=== PATIENT | male | born 1940 ===

== ENCOUNTER 2016-06-01 01:51 | Emergency (ER) | payer OTHER, MEDICARE ==
[~2016-06-01] VITALS: Ht 167.6 cm; Wt 73.0 kg
--- NOTE | 2016-06-01 02:44 | ED NECK/BACK PAIN COMPLAINT ---
History of Present Illness General Chief Complaint: Low Back Pain/Injury Stated Complaint: LEFT SIDE BACK PAIM Source: patient Exam Limitations: no limitations Vital Signs & Intake/Output Vital Signs & Intake/Output Vital Signs Date Time Temp Pulse Resp B/P Pulse O2 O2 Flow FiO2 Ox Delivery Rate 06/02 215 98.4 93 18 182/102 96 Room Air Allergies Coded Allergies: No Known Allergies (06/01/16) Triage Nurses Notes Reviewed? yes Onset: Gradual Duration: day(s):, waxing and waning Timing: recent history Quality/Severity: mild Location: LEFT FLANK PAIN Past History Travel History Traveled to [place] past 21 day No Review of Systems Review of Systems Constitutional: Reports: no symptoms. Eyes: Reports: no symptoms. Ears, Nose, Throat, Mouth: Reports: no symptoms. Respiratory: Reports: no symptoms. Cardiovascular: Reports: no symptoms. Gastrointestinal/Abdominal: Reports: no symptoms. Musculoskeletal: Reports: no symptoms. Skin: Reports: no symptoms. Neurological/Psychological: Reports: no symptoms. All Other Systems: Reviewed and Negative Physical Exam Physical Exam General Appearance: well developed/nourished, mild distress Head: atraumatic Eyes: Bilateral: PERRL, EOMI. Ears, Nose, Throat, Mouth: hearing grossly normal Respiratory: normal breath sounds Cardiovascular: regular rate/rhythm Gastrointestinal: soft, non-tender Back: normal inspection Extremities: normal range of motion Neurologic/Psych: awake, alert, oriented x 3, normal mood/affect Skin: intact, normal color, warm/dry Progress Plan of Care: Orders Procedure Date/time Status LIPASE 06/01 257 Active COMPREHENSIVE METABOLIC PANEL 06/01 257 Active CBC WITHOUT DIFFERENTIAL 06/[address] ABD & PELVIS W/O IV CONTRAS 06/01 257 Active URINALYSIS 06/01 248 Active Departure Departure Condition: Stable Referrals: PATIENCE BLAKELY,SE [place] (PCP/Family) Departure Forms: Customer Survey General Discharge Information
--- NOTE | 2016-06-01 03:02 | ED GI/GU/ABDOMINAL COMPLAINT ---
History of Present Illness General Chief Complaint: Low Back Pain/Injury Stated Complaint: LEFT SIDE BACK PAIM Source: patient, family Exam Limitations: no limitations Vital Signs & Intake/Output Vital Signs & Intake/Output Vital Signs Date Time Temp Pulse Resp B/P Pulse O2 O2 Flow FiO2 Ox Delivery Rate 06/01 0429 162/96 06/01 0407 96.0 80 18 180/101 96 Room Air 06/01 0317 Room Air 06/01 0216 98.4 93 18 182/102 96 Room Air Allergies Coded Allergies: No Known Allergies (06/01/16) Reconcile Medications Albuterol Sulfate (Proair Hfa) 90 MCG HFA.AER.AD 2 PUF INH Q4-6 PRN PRN ASTHMA (Reported) Budesonide/Formoterol Fumarate (Symbicort 160-4.5 Mcg Inhaler) 160 MCG-4.5 MCG/ ACTUATION HFA.AER.AD 2 PUF INH BID ASTHMA (Reported) Ibuprofen 600 MG TABLET 1 TAB PO TID PRN pain with food Tamsulosin HCl (Flomax) 0.4 MG CAP.ER.24H 1 CAP PO DAILY kidney stone Tramadol HCl (Ultram) 50 MG TABLET 1-2 TAB PO TID PRN pain thirty...[id number] Triage Note: 76YO MALE TO RM 7 FROM TRIAGE W/CO L FLANK AREA PAIN INTERMITTENT SINCE . DENIES ANY N,V,D. STATES "HE HAS HX DIVERTIC DISEASE AND HAD CLEAN COLONOSCOPY LAST MONTH" Triage Nurses Notes Reviewed? yes Onset: Gradual Duration: day(s):, waxing and waning Timing: recent history Quality/Severity: cramping, moderate Location: left flank Radiation: LLQ Activities at Onset: none Prior Abdominal Problems: none Modifying Factors: Worsens With: movement. Associated Symptoms: abdominal pain, BACK PAIN HPI: 76-year-old gentleman in prior good health, history of cough variant asthma, presents with left back pain radiating to his left lower quadrant and dark urine. He states the symptoms began early yesterday morning. The symptoms waxed and waned over several hours. Then, tonight he felt the pain got worse. He states he has no nausea vomiting fever chills, diarrhea. He did note increased gas and bloating. He is otherwise well and has no other concerns. Past History Travel History Traveled to [place] past 21 day No Medical History Any Pertinent Medical History? see below for history Respiratory: asthma Surgical History Surgical History: none Family History Hx Contributory? No Review of Systems Review of Systems Constitutional: Reports: no symptoms. EENTM: Reports: no symptoms. Respiratory: Reports: no symptoms. Cardiovascular: Reports: no symptoms. GI: Reports: no symptoms. Genitourinary: Reports: no symptoms. Musculoskeletal: Reports: no symptoms. Skin: Reports: no symptoms. Neurological/Psychological: Reports: no symptoms. Hematologic/Endocrine: Reports: no symptoms. Immunologic/Allergic: Reports: no symptoms. All Other Systems: Reviewed and Negative Physical Exam Physical Exam General Appearance: well developed/nourished, mild distress Head: atraumatic, normal appearance Eyes: Bilateral: normal appearance. Ears, Nose, Throat, Mouth: hearing grossly normal, moist mucous membrane Neck: normal inspection, supple, full range of motion, normal alignment Respiratory: normal breath sounds, chest non-tender, no respiratory distress, quiet respiration, lungs clear Cardiovascular: regular rate/rhythm Gastrointestinal: normal bowel sounds, soft, non-tender, no organomegaly Back: normal inspection, normal range of motion Extremities: normal range of motion Neurologic/Psych: no motor/sensory deficits, awake, alert, oriented x 3 Skin: intact, normal color, warm/dry Core Measures ACS in differential dx? No Severe Sepsis Present: No Septic Shock Present: No Progress Differential Diagnosis: ureterolithiasis, UTI/pyelo Plan of Care: Orders Procedure Date/time Status LIPASE 06/01 257 Complete COMPREHENSIVE METABOLIC PANEL 06/01 257 Complete CBC WITHOUT DIFFERENTIAL 06/01 257 Complete URINALYSIS 06/01 0249 Complete Laboratory Tests 06/01/16 0323: Anion Gap 12, Estimated GFR > 60, BUN/Creatinine Ratio 25.6 H, Glucose 137 H, Calcium 10.3 H, Total Bilirubin 0.7, AST 28, ALT 54, Alkaline Phosphatase 116, Total Protein 7.8, Albumin 4.8, Globulin 3.0, Albumin/Globulin Ratio 1.6, Lipase 873 H, CBC w Diff NO MAN DIFF REQ, RBC 5.14, MCV 94.8 H, MCH 31.8 H, RDW 14.0 , MPV 8.1, Gran % 71.4, Lymphocytes % 13.1 L, Monocytes % 12.1 H, Eosinophils % 2.9, Basophils % 0.5, Absolute Granulocytes 6.2, Absolute Lymphocytes 1.1 L, Absolute Monocytes 1.0 H, Absolute Eosinophils 0.3, Absolute Basophils 0, PUBS MCHC 33.5 06/01/16 0250: Urine Color PINK H, Urine Clarity HAZY H, Urine pH 6.0, Ur Specific [place] 1.020, Urine Protein TRACE H, Urine Ketones NEG, Urine Nitrite NEG, Urine Bilirubin NEG, Urine Urobilinogen 0.2, Ur Leukocyte Esterase NEG, Ur Microscopic SEDIMENT EXAMINED, Urine RBC 50-75 H, Urine WBC 1-3 H, Ur Epithelial Cells RARE, Urine Bacteria RARE H, Urine Hemoglobin LARGE H, Urine Glucose NEG Diagnostic Imaging: Viewed by Me: CT Scan. Discussed w/RAD: CT Scan. Radiology Impression: abd/pelvic ct... left 3mm distal stone... full report below. Initial ED EKG: none Comments: PATIENT: BREANNA FARAH PRESENT AGE: 76 PATIENT ACCOUNT NO: [id number] : 41 LOCATION: [facility] [place] ORDERING PHYSICIAN: TRU MIGUEL MD SERVICE DATE: 06/01/16 EXAM TYPE: CAT - CT ABD & PELVIS W/O IV CONTRAS EXAMINATION: CT ABDOMEN AND PELVIS WITHOUT CONTRAST CLINICAL INFORMATION: Left flank pain. COMPARISON: None. TECHNIQUE: Contiguous axial thin section helical images of the abdomen and pelvis were performed without oral or IV contrast. The data set was reformatted in the coronal and sagittal planes and reviewed on an independent workstation. DLP: 398 mGy-cm. FINDINGS: There is mild bilateral lower lobe bronchiectasis. The visualized lung bases are otherwise clear. The visualized portions of the heart are unremarkable. The liver is of normal size and geographic heterogeneous decreased attenuation without concerning focal lesions nor intrahepatic biliary ductal dilation. Within the left lobe of the liver, there is a 2.9 cm fluid attenuation focus. A normal gallbladder is identified. There is no wall thickening or discernible pericholecystic fluid. The spleen, pancreas, adrenal glands are unremarkable. Both kidneys are of normal size and attenuation without nephrolithiasis. There is left grade 1 hydroureteronephrosis secondary to an obstructive 3 mm distal left ureteral calculus. There is mild left perinephric stranding. There is no right-sided hydronephrosis. There is no abdominal free fluid. There is neither mesenteric nor retroperitoneal lymphadenopathy. There is sigmoid diverticulosis without evidence of diverticulitis. Otherwise, unremarkable unopacified loops of small and large bowel are identified. There is no pelvic free fluid. The urinary bladder is unremarkable. There is neither pelvic nor inguinal lymphadenopathy. Bone windows: Neither sclerotic nor lytic bone lesions are identified. IMPRESSION: Left grade 1 hydroureteronephrosis secondary to an obstructive 3 mm distal left ureteral calculus. Diverticulosis without evidence of diverticulitis. Geographic heterogeneous decreased attenuation, predominantly within the left lobe of the liver. This is nonspecific, but likely footwear sales representative of fatty infiltration. DICTATED BY: LOGAN JOHNSON MD DATE/TIME DICTATED:06/01/16338 EXECUTIVE HOUSEKEEPER:MARCO DATE/TIME TRANSCRIBED:06/01/16338 CONFIDENTIAL, DO NOT COPY WITHOUT APPROPRIATE AUTHORIZATION. <Electronically signed in Other Vendor System> SIGNED BY: LOGAN JOHNSON MD 06/01/16349 Departure Departure Disposition: HOME OR SELF CARE Condition: Stable Clinical Impression Primary Impression: Renal colic on left side Secondary Impressions: Elevated blood pressure reading Referrals: PATIENCE BLAKELY,SE [place] (PCP/Family) Departure Forms: Customer Survey General Discharge Information Prescriptions: Current Visit Scripts Tamsulosin HCl (Flomax) 1 CAP PO DAILY #10 CAP Ibuprofen 1 TAB PO TID PRN pain #30 TAB with food Tramadol HCl (Ultram) 1-2 TAB PO TID PRN pain #30 TAB thirty...[id number] Comments 06/01/16, 4:30am... pt feels well in ed... discussed ct scan results at length... elevated blood pressure noted... he will follow up with his PMD and with urology... sbp at discharge 160's. Close follow up encouraged.
[2016-06-01] MEDS ORDERED: SYMBICORT 16010.2 GM INH (03:40)
[2016-06-01] MEDS ORDERED: PROAIR HFA8.5 GM INH (03:40)
--- NOTE | 2016-06-01 03:50 | CT SCAN REPORT ---
EXAMINATION: CT ABDOMEN AND PELVIS WITHOUT CONTRAST CLINICAL INFORMATION: Left flank pain. COMPARISON: None. TECHNIQUE: Contiguous axial thin section helical images of the abdomen and pelvis were performed without oral or IV contrast. The data set was reformatted in the coronal and sagittal planes and reviewed on an independent workstation. DLP: 398 mGy-cm. FINDINGS: There is mild bilateral lower lobe bronchiectasis. The visualized lung bases are otherwise clear. The visualized portions of the heart are unremarkable. The liver is of normal size and geographic heterogeneous decreased attenuation without concerning focal lesions nor intrahepatic biliary ductal dilation. Within the left lobe of the liver, there is a 2.9 cm fluid attenuation focus. A normal gallbladder is identified. There is no wall thickening or discernible pericholecystic fluid. The spleen, pancreas, adrenal glands are unremarkable. Both kidneys are of normal size and attenuation without nephrolithiasis. There is left grade 1 hydroureteronephrosis secondary to an obstructive 3 mm distal left ureteral calculus. There is mild left perinephric stranding. There is no right-sided hydronephrosis. There is no abdominal free fluid. There is neither mesenteric nor retroperitoneal lymphadenopathy. There is sigmoid diverticulosis without evidence of diverticulitis. Otherwise, unremarkable unopacified loops of small and large bowel are identified. There is no pelvic free fluid. The urinary bladder is unremarkable. There is neither pelvic nor inguinal lymphadenopathy. Bone windows: Neither sclerotic nor lytic bone lesions are identified. IMPRESSION: Left grade 1 hydroureteronephrosis secondary to an obstructive 3 mm distal left ureteral calculus. Diverticulosis without evidence of diverticulitis. Geographic heterogeneous decreased attenuation, predominantly within the left lobe of the liver. This is nonspecific, but likely digital sales representative of fatty infiltration.
[2016-06-01 03:54] LABS: ABSOLUTE BASOPHIL COUNT 0 /CUMM (0.0-0.2); ABSOLUTE EOSINOPHIL COUNT 0.3 /CUMM (0.0-0.7); ABSOLUTE GRANULOCYTE CT 6.2 /CUMM (1.4-6.5); ABSOLUTE LYMPH COUNT 1.1 /CUMM (1.2-3.4); BASOPHIL % 0.5 % (0.0-2.0); EOSINOPHIL % 2.9 % (0-5); GRANULOCYTE % 71.4 % (42.2-75.2); HEMATOCRIT 48.8 % (42-52); MEAN CORPUSCULAR HGB 31.8 PG (27.0-31.0); MEAN CORPUSCULAR HGB CONC 33.5 G/DL (33.0-37.0); MEAN CORPUSCULAR VOLUME 94.8 FL (80.0-94.0); MEAN PLATELET VOLUME 8.1 FL (7.4-10.4); PLATELET COUNT 166 /CUMM (130-400); RED BLOOD CELL CT 5.14 /CUMM (4.70-6.10); WHITE BLOOD CELL COUNT 8.6 /CUMM (4.8-10.8)
[2016-06-01] MEDS ORDERED: IBUPROFEN600 M1 PO (04:08)
[2016-06-01] MEDS ORDERED: FLOMAX0.4 M1 PO (04:08)
[2016-06-01] MEDS ORDERED: ULTRAM50 M1 PO (04:08)
[2016-06-01 04:29] VITALS: BP 162/96
== END 2016-06-01 04:39 ==
LOC: ERH 01:51
PROVIDERS: Pediatrics
DX: N23 Unspecified renal colic (principal); R03.0 Elevated blood-pressure reading, without diagnosis of hypertension
CPT/HCPCS: 74176; 81001